=== PATIENT | female | born 1995 | race Caucasian/White ===

== ENCOUNTER 2016-12-30 16:21 | Emergency (ER) | payer MEDICAID ==
[~2016-12-30] VITALS: Ht 160 cm; Wt 63.6 kg
[~2016-12-30 16:21] MED LIST: 00186-0370-20 IH; 00186-0372-20; ALLEGRA 60MG TA60 MG PO; AMOXICILLIN 50500 MG PO; CLARITIN 1010 MG/TAB PO; DEPO PROVER150 MG/ML IM; FLOVENT 44MCG I13 GM IH; LEXAPRO 10MG10 MG PO; MOTRIN 600600 MG/TAB PO; NO HOME MEDICATIONS; NORCO 325 MG-51 TAB PO; PERCOCET 325 MG1 TA2 PO; PRENATAL1 TA2 PO; PROAIR HFA0.09 MG/AC IH; SINGULAIR PO; TYLENOL #3 301 UDTAB PO
[2016-12-30 16:27] VITALS: BP 144/66; TEMP 98.7
[2016-12-30] MEDS ORDERED: SINGULAIR 110 MG/TAB PO (16:55)
[2016-12-30] MEDS ORDERED: TRIAMC 0.025 80 TOP (16:57)
[2016-12-30 17:06] VITALS: PULSE 80
== END 2016-12-30 17:07 | disposition home or self-care (01) ==
LOC: COL.ER 16:21
DX: T14.8 Other injury of unspecified body region (principal)

== ENCOUNTER 2017-03-09 10:27 | Emergency (ER) | payer MEDICAID ==
[~2017-03-09] VITALS: Ht 160 cm; Wt 61.4 kg
[~2017-03-09 10:27] MED LIST changes: +SINGULAIR 110 MG/TAB PO; +TRIAMC 0.025 80 TOP
[2017-03-09 10:29] VITALS: TEMP 97.6
[2017-03-09] MEDS ORDERED: PREDNISONE20 MG PO (10:48)
[2017-03-09 10:49] VITALS: BP 153/76; PULSE 94
== END 2017-03-09 10:57 | disposition home or self-care (01) ==
LOC: COL.ER 10:27
DX: L50.9 Urticaria, unspecified (principal); J45.909 Unspecified asthma, uncomplicated

== ENCOUNTER → 2017-05-25 | Outpatient (CLI) | payer MEDICAID ==
[~2017-05-25] MED LIST changes: +PREDNISONE20 MG PO
== END ==
LOC: COL.RAD 10:44
DX: S09.90XA Unspecified injury of head, initial encounter (principal); J32.2 Chronic ethmoidal sinusitis; J32.0 Chronic maxillary sinusitis

== ENCOUNTER 2017-09-11 19:21 | Emergency (ER) | payer MEDICAID ==
[2017-09-11 19:25] VITALS: BP 137/88; TEMP 97.1
[2017-09-11] MEDS ORDERED: MOTRIN 800800 MG/TAB PO (20:00)
[2017-09-11 20:15] VITALS: PULSE 75
== END 2017-09-11 20:15 | disposition home or self-care (01) ==
LOC: COL.ER 19:21
DX: S80.02XA Contusion of left knee, initial encounter (principal); W01.10XA Fall on same level from slipping, tripping and stumbling with subsequent striking against unspecified object, initial encounter

== ENCOUNTER 2019-07-27 11:14 | Emergency (ER) | payer MEDICAID ==
[~2019-07-27] VITALS: Ht 160 cm; Wt 68.2 kg
[~2019-07-27 11:14] MED LIST changes: +MOTRIN 800800 MG/TAB PO
[2019-07-27 11:18] VITALS: TEMP 98.2
[2019-07-27] MEDS ORDERED: CLARITIN 1010 MG/TAB PO (11:34)
[2019-07-27] MEDS ORDERED: SINGULAIR 110 MG/TAB PO (11:34)
[2019-07-27] MEDS ORDERED: PROAIR HFA0.09 MG/AC IH (11:35)
[2019-07-27] MEDS ORDERED: 00186-0372-20 IH (11:35)
[2019-07-27 11:45] LABS: COLLECTION METHOD CLEAN CATCH
[2019-07-27 11:57] LABS: PH 7 (5-8); URINE APPEARANCE Cloudy; URINE BACTERIA None Seen /hpf; URINE BILIRUBIN Negative (NEGATIVE); URINE BLOOD 1+ (NEGATIVE); URINE COLOR Yellow; URINE GLUCOSE Negative (NEGATIVE); URINE KETONE Negative (NEGATIVE); URINE LEUKOCYTE ESTERASE 3+ (NEGATIVE); URINE NITRATE Negative (NEGATIVE); URINE PROTEIN(semi-quant) 1+ (NEGATIVE); URINE RBC 20-50 /hpf; URINE UROBILINOGEN Negative (NEGATIVE)
[2019-07-27] MEDS ORDERED: IBU800 M1 PO (12:07)
[2019-07-27] MEDS ORDERED: NORCO 325 MG-7.1 TAB PO (12:07)
[2019-07-27] MEDS ORDERED: VALTREX1 GM PO (12:07)
[2019-07-27] MEDS ORDERED: MACROBID 1100 MG/CAP PO (12:12)
[2019-07-27 12:20] VITALS: BP 125/87; PULSE 115
== END 2019-07-27 12:18 | disposition home or self-care (01) ==
LOC: COL.ER 11:14
PROVIDERS: Physician Assistant
DX: N89.8 Other specified noninflammatory disorders of vagina (principal); F41.8 Other specified anxiety disorders